=== PATIENT | male | born 1950 | race Two or more races ===

== ENCOUNTER 2017-09-22 17:17 | Emergency (ER) | payer MEDICARE ==
[~2017-09-22] VITALS: Ht 170.2 cm; Wt 90.7 kg
[2017-09-22] MEDS ORDERED: TYLENOL PO (17:26)
--- NOTE | 2017-09-22 17:27 | NUR ---
PT IS IN ROOM #2A. DR SNOW EVALUATED THE PT.
[2017-09-22] MEDS ORDERED: IV NORMAL SALINE 1000 ML BAG IV ONE (17:30)
[2017-09-22 17:53] LABS: BASOPHILS # (AUTO) 0.2 K/uL (0.0-8.0); BASOPHILS % (AUTO) 0.8 % (0.0-2.0); EOSINOPHILS # (AUTO) 0.1 K/uL (0.0-0.7); EOSINOPHILS % (AUTO) 0.3 % (0.0-7.0); HEMATOCRIT 47.5 % (40-50); HEMOGLOBIN 16.2 G/DL (14.0-18.0); LYMPHOCYTES # (AUTO) 2.2 K/UL (0.8-4.8); LYMPHOCYTES % (AUTO) 10.8 % (20.5-51.5); MEAN CORPUSCULAR HEMOGLOBIN 32.3 UUG (27.0-31.0); MEAN CORPUSCULAR HGB CONC 34 g/dL (32.0-37.0); MEAN CORPUSCULAR VOLUME 94.8 FL (82.0-92.0); MONOCYTES # (AUTO) 1.2 K/UL (0.1-1.30); MONOCYTES % (AUTO) 5.9 % (0.0-11.0); NEUTROPHILS # (AUTO) 16.3 K/UL (1.8-8.9); NEUTROPHILS % (AUTO) 82.2 % (38.5-71.5); PLATELET COUNT (AUTO) 276 K/UL (150-450); RED BLOOD CELL COUNT(AUTO) 5.01 MIL/UL (4.7-6.1)
[2017-09-22 17:56] LABS: CREATININE 0.9 mg/dL (0.6-1.3); POTASSIUM 3.9 mmol/L (3.5-5.1)
[2017-09-22 18:01] LABS: BILIRUBIN,DIRECT 0.2 mg/dL (0.0-0.2); TOTAL PROTEIN, SERUM 7.7 g/dL (6.4-8.2)
[2017-09-22 18:07] LABS: NEUTROPHILS % (MANUAL) 75 % (42-75)
[2017-09-22 18:08] LABS: BAND % (MANUAL) 7 % (0-10); LYMPHOCYTES % (MANUAL) 12 % (20-40); MONOCYTES % (MANUAL) 6 % (2-10)
[2017-09-22] MEDS ORDERED: PIPERACILLIN SODIUM/TAZOBACTAM 3.375 G in IV DEXTROSE 5% 50 ML IV ONE (18:15)
[2017-09-22] MEDS ORDERED: PIPERACILLIN/TAZOBACTAM/D5W 50 ML IV ONE (18:24)
--- NOTE | 2017-09-22 18:59 | NUR ---
PT IS IN ROOM #2A. DR SNOW EVALUATED THE PT.
--- NOTE | 2017-09-22 19:01 | NUR ---
REPORT GIVEN TO THE COKE DRAWER RN.
--- NOTE | 2017-09-22 19:11 | NUR ---
Received report from JAIRO Chatman. Assumed care of pt at this time.
--- NOTE | 2017-09-22 19:15 | NUR ---
Pt resting in position of comfort for self. Pt remains ST on the monitor. Pt unable to provide urine at this time. Pt denies any abd pain but complains of severe headache. Sts it is a 06/08. Fluids infusing freely on the monitor. Family remains at bedside.
[2017-09-22] MEDS ORDERED: ONDANSETRON 4 MG/2 ML VIAL IV ONE (19:45)
[2017-09-22] MEDS ORDERED: MORPHINE SULFATE 2 MG/1 ML DISP.SYRIN IV ONE (19:45)
[2017-09-22] MEDS ORDERED: MORPHINE SULFATE 2 MG/1 ML DISP.SYRIN ONE (19:56)
[2017-09-22] MEDS ORDERED: ONDANSETRON 4 MG/2 ML VIAL ONE (19:56)
[2017-09-22] MEDS ORDERED: diphenhydrAMINE 50 MG/1 ML VIAL IV ONE (20:00)
[2017-09-22] MEDS ORDERED: METOCLOPRAMIDE HCL 10 MG/2 ML VIAL IV ONE (20:00)
[2017-09-22] MEDS ORDERED: diphenhydrAMINE 50 MG/1 ML VIAL ONE (20:07)
[2017-09-22] MEDS ORDERED: METOCLOPRAMIDE HCL 10 MG/2 ML VIAL ONE (20:07)
--- NOTE | 2017-09-22 20:25 | NUR ---
Dr. Barry into speak with pt about further work up for pt's c/o severe headache. Pt refusing any further evaluation for his headache. Dr. Barry spoke with pt and family indepth of risks, both verbalized understanding of risks.
--- NOTE | 2017-09-22 20:35 | NUR ---
Fluid bolus completed. Pt sts his pain is relieved with his previous medication. Pt signing out AMA. IV dc'd, catheter intact. Drsg applied. No problems noted to site. Pt refusing further evaluation for the headache he had. Dr. Barry spoke with pt's again attempting to convince pt and family to have further workup for his headache. Pt signed out AMA, verbalizing understanding of possible risks. Pt wheeled out to car via w/c with ride home.
[2017-09-22 21:02] VITALS: BP 177/87
== END 2017-09-22 20:35 | disposition left against medical advice (07) ==
LOC: ER 17:17
DX: R10.30 Lower abdominal pain, unspecified (principal); R51 Headache; R50.9 Fever, unspecified
CPT/HCPCS: 36415; 71010; 74176; 80048; 80076; 83605; 83690; 84484; 85025; 85730; 87040 ×2; 93005; 96361; 96365; 96375; 99285; A4663; J1200; J2270; J2405; J2543; J2765; J7030; 70030-TC

== ENCOUNTER 2018-11-25 22:18 | Emergency (ER) | END 2018-11-25 23:48 | disposition home or self-care (01) | DX: K57.32 Diverticulitis of large intestine without perforation or abscess without bleeding (principal); F17.210 Nicotine dependence, cigarettes, uncomplicated ==

== ENCOUNTER 2018-12-11 13:26 | Emergency (ER) | payer MEDICARE ==
[~2018-12-11] VITALS: Ht 170.2 cm; Wt 90.7 kg
[~2018-12-11 13:26] MED LIST: TYLENOL PO
--- NOTE | 2018-12-11 14:03 | NUR ---
PT.WAS SEEN BY JIM. JOSE L
[2018-12-11 14:15] VITALS: BP 167/91
== END 2018-12-11 14:22 | disposition home or self-care (01) ==
LOC: ER 13:26
DX: M54.6 Pain in thoracic spine (principal); R21 Rash and other nonspecific skin eruption; F17.200 Nicotine dependence, unspecified, uncomplicated; Z79.899 Other long term (current) drug therapy
CPT/HCPCS: A4663

== ENCOUNTER 2018-12-17 12:39 | Emergency (ER) | payer MEDICARE ==
[~2018-12-17] VITALS: Ht 170.2 cm; Wt 95.3 kg
[2018-12-17] MEDS ORDERED: GABA-534 PO (13:08)
[2018-12-17] MEDS ORDERED: BENA1TAB17 PO (13:08)
[2018-12-17] MEDS ORDERED: ACYC800T PO (13:09)
[2018-12-17] MEDS ORDERED: HYDROCODONE/APAP 10-325 MG TABLET ONE (13:24)
--- NOTE | 2018-12-17 13:28 | NUR ---
Patient discharged to home in stable conditon. Written and verbal after care instructions given. Patient verbalizes understanding of instructions. Patient walked out of dept with steady gait.
[2018-12-17 13:30] VITALS: BP 159/89
[2018-12-17] MEDS ORDERED: HYDROCODONE/APAP 10-325 MG TABLET PO ONE (13:30)
== END 2018-12-17 13:24 | disposition home or self-care (01) ==
LOC: ER 12:39
DX: B02.9 Zoster without complications (principal); M54.5 Low back pain; F17.200 Nicotine dependence, unspecified, uncomplicated; Z79.899 Other long term (current) drug therapy
CPT/HCPCS: A4663

== ENCOUNTER 2019-06-12 17:35 | Emergency (ER) | payer MEDICARE ==
[~2019-06-12] VITALS: Ht 170.2 cm; Wt 95.3 kg
[~2019-06-12 17:35] MED LIST changes: +ACYC800T PO; +BENA1TAB17 PO; +GABA-534 PO
--- NOTE | 2019-06-12 18:24 | NUR ---
PATIENT C/O GROIN AREA PAIN. DENIES INJURY
[2019-06-12] MEDS ORDERED: HYDROCODONE/APAP 5-325MG TABLET PO ONE (18:45)
[2019-06-12] MEDS ORDERED: IBUPROFEN 800 MG TABLET PO ONE (18:45)
[2019-06-12] MEDS ORDERED: IBUPROFEN 800 MG TABLET ONE (18:47)
--- NOTE | 2019-06-12 19:10 | NUR ---
HAND OFF REPORT GIVEN TO SHIMON GILL
--- NOTE | 2019-06-12 19:15 | NUR ---
Received report from Skinny GILL, assumed care of pt., pt. resting in bed, at bedside, NAD
--- NOTE | 2019-06-12 19:20 | NUR ---
US tech. at bedside
--- NOTE | 2019-06-12 20:11 | NUR ---
Patient discharged to home in stable conditon. Written and verbal after care instructions given. Patient verbalizes understanding of instructions. Pt. d/c w/ prescription per MD order, d/c papers signed, all belongings w/ pt., ID band removed, ambulated off unit w/ steady gait accompanied by female vein pumper, [place], NAD
== END 2019-06-12 20:14 | disposition other institution (70) ==
LOC: ER 17:37
DX: M79.604 Pain in right leg (principal); M54.5 Low back pain; R60.9 Edema, unspecified; F17.210 Nicotine dependence, cigarettes, uncomplicated; Z79.899 Other long term (current) drug therapy
CPT/HCPCS: A4663

== ENCOUNTER 2019-08-21 10:08 | Emergency (ER) | payer MEDICARE ==
[~2019-08-21] VITALS: Ht 170.2 cm; Wt 99.8 kg
--- NOTE | 2019-08-21 10:15 | NUR ---
Dr Barry at the bedside for MSE.
--- NOTE | 2019-08-21 10:24 | NUR ---
Patient discharged to home in stable conditon. Written and verbal after care instructions given. Patient verbalizes understanding of instructions.
== END 2019-08-21 10:25 | disposition home or self-care (01) ==
LOC: ER 10:14
DX: H60.92 Unspecified otitis externa, left ear (principal); I10 Essential (primary) hypertension; F17.210 Nicotine dependence, cigarettes, uncomplicated; Z79.899 Other long term (current) drug therapy
CPT/HCPCS: A4663

== ENCOUNTER 2020-01-19 17:18 | Emergency (ER) | payer MEDICARE ==
[~2020-01-19] VITALS: Ht 170.2 cm; Wt 90.7 kg
[2020-01-19 17:45] LABS: BASOPHILS # (AUTO) 0.1 K/uL (0.0-8.0); BASOPHILS % (AUTO) 0.6 % (0.0-2.0); EOSINOPHILS # (AUTO) 0.2 K/uL (0.0-0.7); EOSINOPHILS % (AUTO) 2.1 % (0.0-7.0); HEMATOCRIT 46.5 % (36.7-47.1); HEMOGLOBIN 15.8 g/dL (12.5-16.3); LYMPHOCYTES # (AUTO) 3.1 K/uL (20.0-40.0); LYMPHOCYTES % (AUTO) 33.2 % (20.5-51.5); MEAN CORPUSCULAR HEMOGLOBIN 31.7 uug (23.8-33.4); MEAN CORPUSCULAR HGB CONC 34 g/dL (32.5-36.3); MEAN CORPUSCULAR VOLUME 93.7 fL (73.0-96.2); MONOCYTES # (AUTO) 0.6 K/uL (2.0-10.0); MONOCYTES % (AUTO) 6.5 % (0.0-11.0); NEUTROPHILS # (AUTO) 5.4 K/uL (1.8-8.9); NEUTROPHILS % (AUTO) 57.6 % (38.5-71.5); PLATELET COUNT (AUTO) 278 K/uL (152-348); RED BLOOD CELL COUNT(AUTO) 4.96 MIL/uL (4.06-5.63); WHITE BLOOD COUNT (AUTO) 9.3 K/uL (3.6-10.2)
[2020-01-19 17:51] LABS: CREATININE 0.9 mg/dL (0.6-1.3)
[2020-01-19 17:57] LABS: BILIRUBIN,DIRECT 0.1 mg/dL (0.0-0.2); BILIRUBIN,TOTAL 0.4 mg/dL (0.2-1.0); TOTAL PROTEIN, SERUM 7.9 g/dL (6.4-8.2)
[2020-01-19] MEDS ORDERED: ACETAMINOPHEN 325 MG TABLET PO ONE (18:15)
[2020-01-19] MEDS ORDERED: METOPROLOL SUCCINATE XL 25 MG TAB.SR.24H PO ONE ×2 (18:15→18:19)
[2020-01-19] MEDS ORDERED: NITROGLYCERIN OINT 1 GM PACKET TP ONE ×2 (18:15→18:19)
[2020-01-19] MEDS ORDERED: ASPIRIN 81 MG TAB.CHEW PO ONE (18:15)
[2020-01-19] MEDS ORDERED: ACETAMINOPHEN 325 MG TABLET ONE (18:19)
[2020-01-19] MEDS ORDERED: ASPIRIN 81 MG TAB.CHEW ONE (18:19)
[2020-01-19] MEDS ORDERED: NITROGLYCERIN 0.4 MG/TAB BOTTLE SL ONE ×2 (18:20→18:45)
--- NOTE | 2020-01-19 18:20 | NUR ---
PT STATES CHEST PAIN IS 6/10 AT THIS TIME.
[2020-01-19] MEDS ORDERED: MORPHINE SULFATE 4 MG/1 ML DISP.SYRIN ONE (18:24)
--- NOTE | 2020-01-19 18:25 | NUR ---
2ND DOSE OF NITRO 0.4MG SL GIVEN, PT STATES PAIN IS 6/10.
[2020-01-19 18:27] VITALS: BP 148/81
[2020-01-19] MEDS ORDERED: MORPHINE SULFATE 4 MG/1 ML DISP.SYRIN IV ONE (18:30)
--- NOTE | 2020-01-19 18:30 | NUR ---
PT DENIES CHEST PAIN, SOB.
--- NOTE | 2020-01-19 18:35 | NUR ---
I called [facility] for transfer as requested by . I spoke with Vladislav (nursing platform material handling supervisor) who stated we need to speak with [facility] physician on duty. Dr. Green spoke with via telephone, EKG and facesheet faxed to [phone] as requested. FYI: Samantha Enriquez number: [phone].
--- NOTE | 2020-01-19 19:50 | NUR ---
Called [facility] ER, spoke with Tushar, regarding higher level of care transfer, awaiting call back.
--- NOTE | 2020-01-19 20:00 | NUR ---
Dr. Valente speaking with [facility] Decorating Equipment Setter.
[2020-01-19] MEDS ORDERED: HEPARIN SODIUM,PORCINE 5,000 UNITS/ML VIAL IV ONE (21:15)
[2020-01-19] MEDS ORDERED: HEPARIN/D5W DRIP 500 ML IV PRN (21:15)
[2020-01-19] MEDS ORDERED: HEPARIN SODIUM,PORCINE 5,000 UNITS/ML VIAL ONE (21:22)
[2020-01-19] MEDS ORDERED: HEPARIN/D5W DRIP 500 ML ONE (21:22)
--- NOTE | 2020-01-19 21:25 | NUR ---
Dr. Valente speaking with [facility] MD Dr. Lehman.
--- NOTE | 2020-01-19 21:33 | NUR ---
[facility], will call back.
--- NOTE | 2020-01-19 21:50 | NUR ---
Spoke with Michael senior manager mergers & acquisitions of [facility], states he spoke with hospitalist and that the hospital is at capacity. made aware.
--- NOTE | 2020-01-19 21:57 | NUR ---
Started heparin drip at 1000 units/HR as ordered by Dr Valente.
--- NOTE | 2020-01-19 22:09 | NUR ---
Dr. Valente speaking with Dr. Kramer of [facility].
--- NOTE | 2020-01-19 22:21 | NUR ---
Krystal from [facility] called back with Transfer info. Patient will be going to [facility] Critical Care Cardiac room 118. Accepting MD is DR Cheng. Call for report is [phone].
--- NOTE | 2020-01-19 22:24 | NUR ---
Called [facility] for transport of patient to [facility], ETA 0000, trip #[id number]
[2020-01-19] MEDS ORDERED: NITROGLYCERIN IV 250 ML IV PRN (22:30)
--- NOTE | 2020-01-19 22:55 | NUR ---
Dr. Valente speaking with Dr. Kingston, patient's primary care provider.
--- NOTE | 2020-01-20 00:34 | NUR ---
Jose GILL stopped Heparin drip prior to transportation.
--- NOTE | 2020-01-20 00:35 | NUR ---
Pt out of ER via [facility] ambulance to be transported to [facility], report and documentation given to EMT.
--- NOTE | 2020-01-20 00:42 | NUR ---
Report given to Summer GILL CCU [facility].
== END 2020-01-20 00:45 | disposition short-term general hospital (02) ==
LOC: ER 17:20
DX: I21.4 Non-ST elevation (NSTEMI) myocardial infarction (principal); I10 Essential (primary) hypertension; F17.210 Nicotine dependence, cigarettes, uncomplicated; Z79.899 Other long term (current) drug therapy
CPT/HCPCS: 36415; 71045; 80048; 80076; 84484 ×2; 85025; 85379; 93005 ×5; 96365; 96366; 96375; 96376; 99291; 99406; J1644 ×2; J2270; 70030-TC; A4663

== ENCOUNTER 2020-04-12 04:05 | Inpatient (IN) | payer MEDICARE ==
[~2020-04-12] VITALS: Ht 170.2 cm; Wt 99.8 kg
[~2020-04-12 04:05] MED LIST changes: -ACYC800T PO; -TYLENOL PO
--- NOTE | 2020-04-12 04:15 | NUR ---
Patient BIB [facility] for c/o dizziness and high blood pressure from home. A/Ox4. Speech is clear, speaks in complete sentences. No acute neuro deficits noted. Denies cp, palpitations. Patient had a near syncope episode and had an episode of weakness at home while trying to ambulate to the bathroom. Patient did not fall. Patient had an emetic episode in the patient care room. Denies any diarrhea. Patient in bed at lowest position, sr upx2, call light within reach. Safety precautions implemented per protocol. Patient placed on the flyer builder.
--- NOTE | 2020-04-12 04:21 | NUR ---
ERMD at bedside for MSE
[2020-04-12] MEDS ORDERED: MECLIZINE HCL 25 MG TABLET PO ONE ×2 (04:30→05:15)
--- NOTE | 2020-04-12 04:34 | NUR ---
Patient had another emetic episode. Requested for ERMD to order IV antiemetic.
[2020-04-12 04:35] LABS: BASOPHILS # (AUTO) 0.1 K/uL (0.0-8.0); BASOPHILS % (AUTO) 0.9 % (0.0-2.0); EOSINOPHILS # (AUTO) 0.3 K/uL (0.0-0.7); EOSINOPHILS % (AUTO) 2.2 % (0.0-7.0); HEMATOCRIT 44.2 % (36.7-47.1); HEMOGLOBIN 15.3 g/dL (12.5-16.3); LYMPHOCYTES # (AUTO) 5.1 K/uL (20.0-40.0); LYMPHOCYTES % (AUTO) 41.4 % (20.5-51.5); MEAN CORPUSCULAR HEMOGLOBIN 31.5 uug (23.8-33.4); MEAN CORPUSCULAR HGB CONC 35 g/dL (32.5-36.3); MEAN CORPUSCULAR VOLUME 90.9 fL (73.0-96.2); MONOCYTES # (AUTO) 0.9 K/uL (2.0-10.0); NEUTROPHILS # (AUTO) 5.9 K/uL (1.8-8.9); NEUTROPHILS % (AUTO) 48.5 % (38.5-71.5); PLATELET COUNT (AUTO) 307 K/uL (152-348); RED BLOOD CELL COUNT(AUTO) 4.86 MIL/uL (4.06-5.63); WHITE BLOOD COUNT (AUTO) 12.2 K/uL (3.6-10.2)
[2020-04-12] MEDS ORDERED: ONDANSETRON ODT 4 MG TAB.RAPDIS ONE (04:35)
[2020-04-12] MEDS ORDERED: MECLIZINE HCL 25 MG TABLET ONE ×2 (04:36→06:29)
[2020-04-12 04:44] LABS: BILIRUBIN,DIRECT 0.1 mg/dL (0.0-0.2); BILIRUBIN,TOTAL 0.2 mg/dL (0.2-1.0); POTASSIUM 3.3 mmol/L (3.5-5.1); TOTAL PROTEIN, SERUM 8.2 g/dL (6.4-8.2)
[2020-04-12] MEDS ORDERED: ONDANSETRON ODT 4 MG TAB.RAPDIS SL ONE (04:45)
[2020-04-12] MEDS ORDERED: ONDANSETRON 4 MG/2 ML VIAL IV ONE (04:45)
[2020-04-12] MEDS ORDERED: METOCLOPRAMIDE HCL 10 MG/2 ML VIAL ONE (05:13)
[2020-04-12] MEDS ORDERED: METOCLOPRAMIDE HCL 10 MG/2 ML VIAL IV ONE (05:15)
[2020-04-12] MEDS ORDERED: diphenhydrAMINE 50 MG/1 ML VIAL IV ONE (05:30)
[2020-04-12] MEDS ORDERED: ASPIRIN 325 MG TABLET PO ONE (05:30)
[2020-04-12] MEDS ORDERED: IV NORMAL SALINE 500 ML IV ONE (05:30)
--- NOTE | 2020-04-12 05:37 | NUR ---
[facility] admitting paged. Awaiting call back from Kartik Daigle ADOLESCENT SPECIALIST
--- NOTE | 2020-04-12 05:50 | NUR ---
Report given to JAIRO Thomas
--- NOTE | 2020-04-12 05:59 | NUR ---
Patient does not recall the medications he takes at home. Call in a few hours to get med recon. Endorsed to TELE nurse.
[2020-04-12] MEDS ORDERED: hydrALAZINE HCL 20 MG/1 ML VIAL IV PRN (06:00)
[2020-04-12] MEDS ORDERED: MORPHINE SULFATE 2 MG/1 ML DISP.SYRIN IV PRN (06:00)
[2020-04-12] MEDS ORDERED: ONDANSETRON 4 MG/2 ML VIAL IV PRN (06:00)
[2020-04-12 06:26] LABS: MAGNESIUM 2.2 mg/dL (1.8-2.4); PHOSPHOROUS 3.5 mg/dL (2.5-4.9)
[2020-04-12 06:30] VITALS: BP 151/78
--- NOTE | 2020-04-12 06:30 | NUR ---
PATIENT RECEIVED FROM ER. V/S STABLE. NO SIGNS OF ACUTE DISTRESS. 2L NC. NSR ON TELE MONITOR. BELONGINGS LIST COMPLETED. FALL PRECAUTIONS IN PLACE. WILL ENDORSE TO MORNING SHIFT TO COMPLETE BOLUS ADMINISTRATION FROM ER. IV ON R AC 18G INTACT AND PATENT. CARE PLAN PROCESSED.
--- NOTE | 2020-04-12 06:30 | NUR ---
Patient transported to TELE in stable condition.
[2020-04-12 06:34] LABS: THYROID STIMULATING HORMONE 4.585 mIU/mL (0.358-3.740)
--- NOTE | 2020-04-12 07:30 | NUR ---
Received patient in bed, intermittently sleeping . Patient was admitted for Intractable nausea with vomiting and dizziness under Dr. Lewis. On Oxygen at 2L/min via nasal canula, Saturating 99%. No complain of Pain at this time. Will give Potassium 20 meq IV for Potassium of 3.3. for Kept clean comfortable. Kept the call light within easy reach. will continue to monitor.
[2020-04-12] MEDS: IV NS 1000 ML 1,000 ML IV PRN (08:07)
[2020-04-12] MEDS: POTASSIUM CHLORIDE 50 ML IV SCH ×2 (08:18→09:27)
[2020-04-12 11:30] VITALS: BP 92/49
[2020-04-12] MEDS: MECLIZINE HCL 25 MG TABLET PO SCH ×2 (14:42→21:24)
[2020-04-12 15:14] VITALS: BP 114/55
[2020-04-12] MEDS: GABAPENTIN 300 MG CAPSULE PO SCH (17:09)
[2020-04-12] MEDS: HYDROCODONE/APAP 5-325MG TABLET PO PRN (18:23)
--- NOTE | 2020-04-12 18:24 | NUR ---
Patient in bed, awake and verbally responsive. No signs of distress noted. No SOB. saturating 96% on Room Air. [place] 5/325 mg given for back Pain. All due medications given as ordered. Kept clean and comfortable. Kept the call light within easy reach. Will continue to monitor.
--- NOTE | 2020-04-12 19:30 | NUR ---
Received patient lying in bed. AAOx4. In no acute distress. VS WNL. Denies any SOB or dizziness at this time. Complained of headache, will provide pain medication per order. NSR on tele at 94/min. IV site on left AC intact and patent. IVF infusing. Safety measure initiated and call stern within reached.
[2020-04-12 20:12] VITALS: BP 135/66
[2020-04-12] MEDS: HYDROCHLOROTHIAZIDE 12.5 MG CAPSULE PO SCH (20:22)
[2020-04-12] MEDS: BENAZEPRIL HCL 10 MG TABLET PO SCH (20:23)
[2020-04-12] MEDS ORDERED: SIMVASTATIN 20 MG TABLET PO SCH (21:00)
[2020-04-13] MEDS: IV NS 1000 ML 1,000 ML IV PRN ×2 (00:23→18:19)
[2020-04-13] MEDS: HYDROCODONE/APAP 5-325MG TABLET PO PRN ×3 (03:49→20:34)
[2020-04-13 04:15] VITALS: BP 121/65
[2020-04-13] MEDS: MECLIZINE HCL 25 MG TABLET PO SCH ×3 (05:12→21:01)
--- NOTE | 2020-04-13 06:07 | NUR ---
AAOx4. Slept well last night. In no acute distress. Denies any SOB or dizziness. NSR on tele at 79/min. IV site on left AC intact and patent. IVF infusing. Safety measure maintained and call stern within reached.
[2020-04-13 06:09] LABS: BASOPHILS % (AUTO) 0.4 % (0.0-2.0); EOSINOPHILS # (AUTO) 0.2 K/uL (0.0-0.7); EOSINOPHILS % (AUTO) 1.5 % (0.0-7.0); HEMATOCRIT 39.2 % (36.7-47.1); HEMOGLOBIN 13.5 g/dL (12.5-16.3); LYMPHOCYTES # (AUTO) 2.9 K/uL (20.0-40.0); LYMPHOCYTES % (AUTO) 28.8 % (20.5-51.5); MEAN CORPUSCULAR HEMOGLOBIN 31.5 uug (23.8-33.4); MEAN CORPUSCULAR HGB CONC 34 g/dL (32.5-36.3); MEAN CORPUSCULAR VOLUME 91.8 fL (73.0-96.2); MONOCYTES # (AUTO) 0.6 K/uL (2.0-10.0); MONOCYTES % (AUTO) 5.9 % (0.0-11.0); NEUTROPHILS # (AUTO) 6.4 K/uL (1.8-8.9); NEUTROPHILS % (AUTO) 63.4 % (38.5-71.5); PLATELET COUNT (AUTO) 269 K/uL (152-348); RED BLOOD CELL COUNT(AUTO) 4.27 MIL/uL (4.06-5.63); WHITE BLOOD COUNT (AUTO) 10.1 K/uL (3.6-10.2)
[2020-04-13 06:27] LABS: CREATININE 0.8 mg/dL (0.6-1.3); PHOSPHOROUS 3.9 mg/dL (2.5-4.9); POTASSIUM 3.6 mmol/L (3.5-5.1)
--- NOTE | 2020-04-13 06:30 | NUR ---
Patient was Picked up by 2 EMT for MRI w/o contrast at [facility].
--- NOTE | 2020-04-13 07:45 | NUR ---
Patient in bed, awake and verbally responsive. No signs of distress noted. Afebrile. No complain of Pain or discomfort. IVF infusing Well. kept clean and comfortable. Will continue to monitor.
[2020-04-13] MEDS: ASPIRIN EC 81 MG TABLET.DR PO SCH (08:10)
[2020-04-13] MEDS: GABAPENTIN 300 MG CAPSULE PO SCH ×3 (08:10→18:09)
--- NOTE | 2020-04-13 11:30 | NUR ---
Patient was facetime with Dr. Russell, with New Order of MRI w/o contrast today.
[2020-04-13 11:50] VITALS: BP 143/81
--- NOTE | 2020-04-13 12:00 | NUR ---
Patient will have MRI w/o contrast at [facility]. Transportation will be here at 1530.
[2020-04-13 15:35] VITALS: BP 100/58
--- NOTE | 2020-04-13 18:09 | NUR ---
Patient came back from [facility].
--- NOTE | 2020-04-13 18:47 | NUR ---
Patient in bed, awake and verbally responsive. No signs of distress noted. No SOB. [place] 5/325mg given for headache, with Help after 30minutes. Went to [facility] for MRI Brain w/o contrast and came back in stable condition. All due medication given as ordered. Kept clean and comfortable. Will endorse to Oncoming Nurse.
--- NOTE | 2020-04-13 19:20 | NUR ---
Received patient lying in bed, asleep but easily arouse to verbal stimuli. AAOx4, but with periods of forgetfulness. In no acute distress. Denies any SOB or dizziness at this time. NSR on tele at 81/min. IV site on left AC intact and patent. IVF infusing. Needs assessed and attended to. Safety measure initiated and call stern within reached.
[2020-04-13 20:10] VITALS: BP 133/61
[2020-04-13] MEDS: BENAZEPRIL HCL 10 MG TABLET PO SCH (20:34)
[2020-04-13] MEDS: HYDROCHLOROTHIAZIDE 12.5 MG CAPSULE PO SCH (20:34)
[2020-04-13] MEDS ORDERED: ATORVASTATIN 40 MG TABLET PO SCH (21:00)
--- NOTE | 2020-04-13 21:54 | NUR ---
Urine specimen sent to lab.
[2020-04-13 22:06] LABS: *BILIRUBIN,URIN NEGATIVE (NEGATIVE); *BLOOD, URINE NEGATIVE (NEGATIVE); *CLARITY,URINE CLEAR (CLEAR); *COLOR,URINE YELLOW (YELLOW); *KETONES,URINE NEGATIVE (NEGATIVE); *UROBILINOGEN,URINE 0.2 E.U./dl (NORMAL); LEUKOCYTE ESTERASE ,URINE NEGATIVE (NEGATIVE); NITRITE, URINE NEGATIVE (NEGATIVE); PH,URINE 5.5 (5.0-8.0); UGLUCOSE NEGATIVE (NEGATIVE)
[2020-04-13 22:17] LABS: *AMPHETAMINE, URINE NEGATIVE (NEGATIVE); *BARBITURATE, URINE NEGATIVE (NEGATIVE); *CANNABINOID, URINE NEGATIVE (NEGATIVE); *COCCAINE, URINE NEGATIVE (NEGATIVE); *OPIATE, URINE POSITIVE (NEGATIVE); *PHENCYCLIDINE SCREEN,URINE NEGATIVE (NEGATIVE)
[2020-04-14 00:16] VITALS: BP 132/70
[2020-04-14] MEDS: IV NS 1000 ML 1,000 ML IV PRN (02:50)
[2020-04-14 04:14] VITALS: BP 138/82
[2020-04-14] MEDS: HYDROCODONE/APAP 5-325MG TABLET PO PRN (04:31)
[2020-04-14] MEDS: MECLIZINE HCL 25 MG TABLET PO SCH (05:28)
--- NOTE | 2020-04-14 06:15 | NUR ---
AAOx4. In no acute distress. Denies any SOB. [place] PRN given for complain of headache. NSR on tele at 72/min. IV site on left AC intact and patent. IVF infusing. Safety measure maintained and call stern within reached.
--- NOTE | 2020-04-14 07:30 | NUR ---
RECIEVED PT AWAKE, ALERT AND ORIENTEDX3. APPEARS VERY ANXIOUS AND STATED HE HAD NOT SEEN THE DOCTORS SINCE ADMISSION. EXPLAINED TO HIM THAT HIS PRIMARY MD HAS SEEN HIM AND ALSO HIS NEUROLOGIST. SR ON THE MONITOR. IVF SITE ON THE LEFT AC IS INFILTRATED AND HELD IVF AT THE MOMENT. PT IS SITTING AT EDGE OF THE BED, DENIES ANY DIZZINESS AT THIS TIME.
[2020-04-14 08:00] VITALS: BP 113/65
--- NOTE | 2020-04-14 08:20 | NUR ---
PT ATE GOOD BREAKFAST. DENIES ANY N/V. PT IS AGITATED AND WANTED TO SIGN AMA. EXPLAINED THAT PMD WILL BE IN TO SEE HIM.
[2020-04-14] MEDS: ASPIRIN EC 81 MG TABLET.DR PO SCH (08:39)
[2020-04-14] MEDS: GABAPENTIN 300 MG CAPSULE PO SCH (08:39)
[2020-04-14 08:46] LABS: BASOPHILS % (AUTO) 0.5 % (0.0-2.0); EOSINOPHILS # (AUTO) 0.2 K/uL (0.0-0.7); EOSINOPHILS % (AUTO) 2.1 % (0.0-7.0); HEMATOCRIT 42.6 % (36.7-47.1); HEMOGLOBIN 14.4 g/dL (12.5-16.3); LYMPHOCYTES # (AUTO) 3.1 K/uL (20.0-40.0); LYMPHOCYTES % (AUTO) 34.9 % (20.5-51.5); MEAN CORPUSCULAR HEMOGLOBIN 31.4 uug (23.8-33.4); MEAN CORPUSCULAR HGB CONC 34 g/dL (32.5-36.3); MEAN CORPUSCULAR VOLUME 92.5 fL (73.0-96.2); MONOCYTES # (AUTO) 0.6 K/uL (2.0-10.0); MONOCYTES % (AUTO) 6.7 % (0.0-11.0); NEUTROPHILS % (AUTO) 55.8 % (38.5-71.5); PLATELET COUNT (AUTO) 251 K/uL (152-348)
[2020-04-14 08:53] LABS: CREATININE 0.9 mg/dL (0.6-1.3); MAGNESIUM 2.1 mg/dL (1.8-2.4); PHOSPHOROUS 4.4 mg/dL (2.5-4.9); POTASSIUM 3.8 mmol/L (3.5-5.1)
--- NOTE | 2020-04-14 09:00 | NUR ---
PT REFUSED TO TTAKE HIS MEDICATIONS. SEEN AND EXAMINED BY DR LEON . PT REFUSED TO GO TO A REHAAAB. PLANNED TO DISCHARGE HIM TODAY.
[2020-04-14 13:00] VITALS: BP 135/84
--- NOTE | 2020-04-14 13:00 | NUR ---
RN LACTATION SPOKE TO PT REGARDING HOME HEALTH PT. PT WANTED TO ARRANGE HIS OWN PT FROM HIS PMD. DISCHARGE INSTRUCTIONS AND EDUCATION GIVEN TO PATIENT WITH GOOD UNDERSTANDING. PT VERY ANXIOUS TO GO HOME.
[2020-04-14] MEDS ORDERED: ATOR40TA PO (13:14)
[2020-04-14] MEDS ORDERED: ASPI-618 PO (13:14)
[2020-04-14] MEDS ORDERED: MECL-159 PO (13:14)
--- NOTE | 2020-04-14 14:10 | NUR ---
DISCHARGED VIA WHEELCHAIR VIA PRIVATE CAR ACCOMPANIED BY HIS . CONDITION IS STABLE.
== END 2020-04-14 14:10 | disposition home health service (06) | DRG 305 ==
LOC: ER 04:08 → TELE3 06:22
PROVIDERS: ADMIT Student in an Organized Health Care Education/Training Program; ATTEND Student in an Organized Health Care Education/Training Program
DX: I16.0 Hypertensive urgency (principal); R11.2 Nausea with vomiting, unspecified; E87.6 Hypokalemia; I25.10 Atherosclerotic heart disease of native coronary artery without angina pectoris; Z95.5 Presence of coronary angioplasty implant and graft; D72.829 Elevated white blood cell count, unspecified; E78.5 Hyperlipidemia, unspecified; B02.9 Zoster without complications; F17.200 Nicotine dependence, unspecified, uncomplicated; I10 Essential (primary) hypertension; M19.90 Unspecified osteoarthritis, unspecified site; K57.90 Diverticulosis of intestine, part unspecified, without perforation or abscess without bleeding; K46.9 Unspecified abdominal hernia without obstruction or gangrene; Z91.19 Patient's noncompliance with other medical treatment and regimen; H81.10 Benign paroxysmal vertigo, unspecified ear
CPT/HCPCS: 36415; 70030-TC; 70450; 70551; 80307; 83605; 83735; 84100; 84443; 85025; 85651; 85730; 86592; 93005; 93307; A4663; G0378; J1200; J2405; J2765; J3480; J7030; J7040; J8597; Q0162

== ENCOUNTER 2022-05-01 17:43 | Emergency (ER) | payer MEDICARE, OTHER ==
[~2022-05-01] VITALS: Ht 170.2 cm; Wt 99.8 kg
[~2022-05-01 17:43] MED LIST changes: +ASPI-618 PO; +ATOR40TA PO; +MECL-159 PO
--- NOTE | 2022-05-01 18:06 | NUR ---
PT IS IN ROOM #2A. DR CARRANZA EVALUATED THE PT.
[2022-05-01] MEDS ORDERED: CIPR7.5D RIGHT EAR (18:13)
--- NOTE | 2022-05-01 18:23 | NUR ---
PT WAS D/C'd TO HOME. D/C INSTRUCTIONS GIVEN TO THE PT BY DR CARRANZA.
[2022-05-01 18:24] VITALS: BP 142/81
== END 2022-05-01 18:26 | disposition home or self-care (01) ==
LOC: ER 17:45
DX: H60.92 Unspecified otitis externa, left ear (principal); H61.22 Impacted cerumen, left ear; H92.01 Otalgia, right ear; F17.210 Nicotine dependence, cigarettes, uncomplicated; I10 Essential (primary) hypertension; Z95.5 Presence of coronary angioplasty implant and graft; Z91.14 Patient's other noncompliance with medication regimen; M19.90 Unspecified osteoarthritis, unspecified site
CPT/HCPCS: A4663

== ENCOUNTER 2022-08-13 16:38 | Emergency (ER) | payer MEDICARE, OTHER ==
[~2022-08-13 16:38] MED LIST changes: +CIPR7.5D RIGHT EAR
--- NOTE | 2022-08-13 17:32 | NUR ---
called for triage, no answer
--- NOTE | 2022-08-13 17:42 | NUR ---
called for triage, no answer
--- NOTE | 2022-08-13 17:47 | NUR ---
left ER before triage
== END 2022-08-13 17:47 | disposition left against medical advice (07) ==
LOC: ER 16:47
DX: Z53.21 Procedure and treatment not carried out due to patient leaving prior to being seen by health care provider (principal)

== ENCOUNTER 2022-12-22 12:23 | Outpatient (CLI) | payer MEDICARE, OTHER ==
[2022-12-22] MEDS ORDERED: SWABABLE VALVE TRANSFER SET EA MC ONE (12:54)
[2022-12-22] MEDS ORDERED: IOHEXOL 300MG/ML 100 ML INFUS..BTL ONE (12:54)
[2022-12-22] MEDS ORDERED: IV NORMAL SALINE 250 ML IV ONE (12:54)
== END 2022-12-22 23:59 | disposition home or self-care (01) ==
LOC: CT 12:23
PROVIDERS: ATTEND Thoracic Surgery (Cardiothoracic Vascular Surgery)
DX: K57.30 Diverticulosis of large intestine without perforation or abscess without bleeding (principal); I70.0 Atherosclerosis of aorta; K40.90 Unilateral inguinal hernia, without obstruction or gangrene, not specified as recurrent; I70.203 Unspecified atherosclerosis of native arteries of extremities, bilateral legs
CPT/HCPCS: 73706; Q9967

== ENCOUNTER 2024-09-05 11:28 | Emergency (ER) | payer MEDICARE, OTHER ==
[~2024-09-05] VITALS: Ht 170.2 cm; Wt 103.9 kg
[2024-09-05 13:04] LABS: BASOPHILS # (AUTO) 0.2 K/UL (0.0-0.2); BASOPHILS % (AUTO) 2.4 % (0.0-2.0); EOSINOPHILS # (AUTO) 0.1 K/uL (0.0-0.7); EOSINOPHILS % (AUTO) 1.5 % (0.0-7.0); HEMATOCRIT 46.6 % (36.7-47.1); HEMOGLOBIN 15.4 g/dL (12.5-16.3); LYMPHOCYTES # (AUTO) 1.9 K/uL (0.8-4.8); LYMPHOCYTES % (AUTO) 25.1 % (20.5-51.5); MEAN CORPUSCULAR HEMOGLOBIN 31.8 uug (23.8-33.4); MEAN CORPUSCULAR HGB CONC 33 g/dL (32.5-36.3); MEAN CORPUSCULAR VOLUME 95.8 fL (73.0-96.2); MONOCYTES # (AUTO) 0.5 K/uL (0.1-1.30); MONOCYTES % (AUTO) 7.3 % (0.0-11.0); NEUTROPHILS # (AUTO) 4.8 K/uL (1.8-8.9); NEUTROPHILS % (AUTO) 63.7 % (38.5-71.5); PLATELET COUNT (AUTO) 250 K/uL (152-348); RED BLOOD CELL COUNT(AUTO) 4.86 MIL/uL (4.06-5.63); RED CELL DISTRIBUTION WIDTH 14.1 % (12.1-16.2); WHITE BLOOD COUNT (AUTO) 7.5 K/uL (3.6-10.2)
[2024-09-05 13:09] LABS: *BILIRUBIN,URIN NEGATIVE (NEGATIVE); *BLOOD, URINE NEGATIVE (NEGATIVE); *CLARITY,URINE CLEAR (CLEAR); *COLOR,URINE YELLOW (YELLOW); *KETONES,URINE NEGATIVE (NEGATIVE); *PROTEIN,URINE NEGATIVE (NEGATIVE); *UROBILINOGEN,URINE 0.2 E.U./dl (NORMAL); LEUKOCYTE ESTERASE ,URINE NEGATIVE (NEGATIVE); NITRITE, URINE NEGATIVE (NEGATIVE); PH,URINE 5.5 (5.0-8.0); UGLUCOSE 3+ (NEGATIVE)
[2024-09-05 13:11] LABS: CALCIUM 9.6 mg/dL (8.5-10.1); CARBON DIOXIDE 31 mmol/L (21-32); CHLORIDE 103 mmol/L (98-107); CREATININE 0.7 mg/dL (0.6-1.3); GLUCOSE 140 mg/dL (74-106); SODIUM SERUM 139 mmol/L (136-145); UREA NITROGEN, BLOOD 14 mg/dL (7-18)
[2024-09-05 13:12] LABS: DIFFERENTIAL COMMENT 1
[2024-09-05 13:13] LABS: WBC,URINE 0-3 /HPF (0-3)
[2024-09-05 13:17] LABS: ALANINE AMINOTRANSFERASE 63 U/L (16-63); ALBUMIN 3.9 g/dL (3.4-5.0); ALKALINE PHOSPHATASE 64 U/L (50-136); ASPARTATE AMINOTRANSFERASE 27 U/L (15-37); BILIRUBIN,DIRECT 0.2 mg/dL (0.0-0.2); BILIRUBIN,TOTAL 0.6 mg/dL (0.2-1.0); LIPASE 44 U/L (16-77); TOTAL PROTEIN, SERUM 7.9 g/dL (6.4-8.2)
[2024-09-05] MEDS ORDERED: HYDR-3972 PO (14:21)
[2024-09-05 14:38] VITALS: BP 128/72; O2SAT 97
== END 2024-09-05 14:30 | disposition home or self-care (01) ==
LOC: ER 11:28
DX: R10.32 Left lower quadrant pain (principal); E11.9 Type 2 diabetes mellitus without complications; E78.5 Hyperlipidemia, unspecified; I25.10 Atherosclerotic heart disease of native coronary artery without angina pectoris; M19.90 Unspecified osteoarthritis, unspecified site; F17.210 Nicotine dependence, cigarettes, uncomplicated; Z79.82 Long term (current) use of aspirin; Z79.899 Other long term (current) drug therapy; Z95.5 Presence of coronary angioplasty implant and graft
CPT/HCPCS: 36415; 83690; 85025; A4606; A4663

== ENCOUNTER 2025-09-09 15:32 | Emergency (ER) | payer MEDICARE, OTHER ==
[~2025-09-09] VITALS: Ht 170.2 cm; Wt 102.1 kg
[~2025-09-09 15:32] MED LIST changes: +HYDR-3972 PO
[2025-09-09 15:48] VITALS: BP 142/80
[2025-09-09] MEDS ORDERED: IBUPROFEN 800 MG TABLET ONE (16:46)
[2025-09-09] MEDS ORDERED: ACYCLOVIR 200 MG CAPSULE ONE (16:46)
[2025-09-09] MEDS: ACYCLOVIR 400 MG TABLET PO ONE (16:56)
[2025-09-09] MEDS: IBUPROFEN 800 MG TABLET PO ONE (16:56)
[2025-09-09] MEDS ORDERED: VALA10002 PO (17:02)
[2025-09-09] MEDS ORDERED: PRED20TA PO (17:02)
[2025-09-09 17:36] VITALS: BP 138/80; TEMP 98; O2SAT 98
== END 2025-09-09 17:37 | disposition home or self-care (01) ==
LOC: ER 16:00
DX: G51.0 Bell's palsy (principal); E11.9 Type 2 diabetes mellitus without complications; B02.9 Zoster without complications; F17.210 Nicotine dependence, cigarettes, uncomplicated; I11.9 Hypertensive heart disease without heart failure; I25.10 Atherosclerotic heart disease of native coronary artery without angina pectoris; I25.2 Old myocardial infarction; K70.30 Alcoholic cirrhosis of liver without ascites; M19.90 Unspecified osteoarthritis, unspecified site; Z79.52 Long term (current) use of systemic steroids; Z79.624 Long term (current) use of inhibitors of nucleotide synthesis; Z79.82 Long term (current) use of aspirin; Z79.899 Other long term (current) drug therapy
CPT/HCPCS: A4606; A4663; J7512